=== PATIENT | male | born 1990 | race Caucasian/White ===

== ENCOUNTER 2020-04-15 17:06 | Emergency (ER) | payer OTHER ==
--- NOTE | 2020-04-15 17:13 | ED.PDOC ---
History of Present Illness - General Time Seen by Provider: 04/15/20 17:12 Source: patient - History of Present Illness Initial Comments: 29 yo male who presents with cc of fevers and body aches. Patient reports he initially became ill about 18 days ago with primary symptoms of malaise and dry cough. He tested positive for COVID-19 at that time. Reports he was gradually improving and feeling better until about 3 days ago. Since then he reports [facility] complaint of constant diffuse body aches which he rates as 6/10 severity currently, worse with activity/exertion. Reports aching pains throughout his entire body and all of his joints. He has been taking [id number] medications with little relief. Reports also frequent fevers and chills and diaphoretic episodes throughout the day. Tmax 103 F reported at home. He additionally reports continued malaise, fatigue, moderate generalized headache, intermittent nonproductive cough. Reports slightly decreased appetite and decreased solid food intake but reports has been drinking plenty of fluids and urinating normally. Denies any abdominal pain, nausea/vomiting, diarrhea, sore throat, chest pain, dyspnea, leg swelling. Reports missing yesterday in the clinic and tested negative for COVID-19, flu, strep, mono. He was given a shot of steroids and another IM medication but is uncertain if it is. Reports no improvement with this treatment. Allergies/Adverse Reactions: Allergies Penicillins Allergy (Verified 04/15/20 17:33) Review of Systems - Review of Systems Review of Systems: 04/15/20 17:34 as per HPI All other Systems: Reviewed and Negative Family Medical History - Family History Mother Family History: Unknown Physical Exam - Physical Exam General Appearance: Alert, Comfortable, No apparent distress Eye Exam: bilateral normal Ears, Nose, Throat: hearing grossly normal, normal ENT inspection, normal pharynx Neck: full range of motion, supple, normal inspection, tender lateral - mild muscular lateral ttp, no midline ttp, kernig and brudzinski signs negative Respiratory: lungs clear, normal breath sounds, no respiratory distress, no accessory muscle use Cardiovascular/Chest: normal peripheral pulses, no edema, no gallop, no JVD, no murmur, tachycardia Peripheral Pulses: radial,right: 2+, radial,left: 2+ Gastrointestinal/Abdominal: non tender, soft, no organomegaly Back Exam: normal inspection, no CVA tenderness, no vertebral tenderness Extremity: normal range of motion, non-tender, normal inspection, no pedal edema, no calf tenderness, normal capillary refill 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 Consider also UTI, PNA, rhabdomyolysis, TRACEY, electrolyte derangement, ?PE/DVT, other -pt with borderline tachycardia on arrival, HR 95-105, otherwise vitals stable, pt NAD -obtain RVP2 panel, bloodwork, d-dimer, CXR -place PIV, 1 L NS bolus, reassess 04/15/20 18:38 -Pt remains stable, tachycardia now resolved following IV fluids. Pt reports he is actually feeling much better with rest & IV fluids. -Labs are c/w viral infection - suspect COVID-19. Leukopenia, slightly elevated CPK (400s), slightly elevated d-dimer. Strep testing negative. Lactate 1.6 - doubt bacterial infection/sepsis. As no hypoxia, dyspnea, CP, hx of blood clots, highly doubtful of DVT/PE. Tachycardia again is resolved. Will defer any further imaging at this time. -Will give Toradol 30 mg IV and plan for dc to home. Advised further quarantine for minimum 10 days given strong suspicion for COVID-19. 04/16/20 20:12 -RVP2 showed COVID-19+, negative for all other tested pathogens. Will call and notify the patient of the official result. Plan remains the same as above. Larry Anderson MD Billing #[id number] 04/15/20 17:28 IV Care:Saline Lock per Protoc QSHIFT Telemetry .ONCE Sodium Chloride 0.9% (Flush) [Saline Flush Syringe] 10 ml IV PRN PRN 04/15/20 17:29 URINALYSIS Stat 04/15/20 18:05 RESPIRATORY PANEL 2 Stat STREP A SCREEN CULTURE Stat Laboratory Results - last 24 hr 04/15/20 04/15/20 04/15/20 17:49 17:49 17:49 WBC 3.9 L RBC 5.01 Hgb 16.2 Hct 45.5 MCV 90.8 MCH 32.3 H MCHC 35.5 RDW 12.2 Plt Count 145 MPV 9.0 Absolute Neuts (auto) 2.90 Absolute Lymphs (auto) 0.70 L Absolute Monos (auto) 0.30 Absolute Eos (auto) 0.00 Absolute Basos (auto) 0.00 Neutrophils % 74.3 Lymphocytes % 17.1 L Monocytes % 7.9 Eosinophils % 0.1 L Basophils % 0.6 D-Dimer, Quantitative Sodium 135 Potassium 3.7 Chloride 100 L Carbon Dioxide 24 Anion Gap 14.7 BUN 11 Creatinine 1.17 BUN/Creatinine Ratio 9.4 L Random Glucose 124 H Serum Osmolality 270.9 L Lactic Acid Calcium 8.2 L Total Bilirubin 1.1 H AST 44 H ALT 45 Alkaline Phosphatase 55 Creatine Kinase 411 H* Serum Total Protein 6.7 Albumin 3.7 Globulin 3.0 Albumin/Globulin Ratio 1.2 Group A Strep Rapid 04/15/20 04/15/20 04/15/20 17:49 17:49 18:05 WBC RBC Hgb Hct MCV MCH MCHC RDW Plt Count MPV Absolute Neuts (auto) Absolute Lymphs (auto) Absolute Monos (auto) Absolute Eos (auto) Absolute Basos (auto) Neutrophils % Lymphocytes % Monocytes % Eosinophils % Basophils % D-Dimer, Quantitative 559.0 H Sodium Potassium Chloride Carbon Dioxide Anion Gap BUN Creatinine BUN/Creatinine Ratio Random Glucose Serum Osmolality Lactic Acid 1.6 Calcium Total Bilirubin AST ALT Alkaline Phosphatase Creatine Kinase Serum Total Protein Albumin Globulin Albumin/Globulin Ratio Group A Strep Rapid Negative - EKG/XRAY/CT XRAY: chest - no acute processes per my read Departure - Departure Clinical Impression: COVID-19 Time of Disposition: 18:33 Disposition: Discharge to Home or Self Care Condition: Good Departure Forms: ED Discharge - Work Release Instructions: Coronavirus Disease 2019 (COVID-19) Diet: resume usual diet Activity: increase activity as tolerated Referrals: Damion Howell MD [Primary Care Provider] - 1-2 Weeks Additional Instructions: Remain well-hydrated and gradually advance your diet activity level as tolerated. Continue to take [id number] medications as needed for pain and fever such as Tylenol 650 mg every 6 hours as needed and ibuprofen 600 mg every 6 hours as needed. Return to the ED if you develop concerning symptoms such as worsening shortness of breath, chest pain, abdominal pain, intractable nausea and vomiting, large volume or frequent (more than 10 episodes per day) diarrhea, etc. Follow-up with your primary care doctor is recommended in the next 1 to 2 weeks for repeat evaluation or sooner as needed. I advise that you quarantine for at least another 10 days given concern for COVID-19 infection.
[2020-04-15] MEDS ORDERED: SODIUM CHLORIDE 0.9% (FLUSH) 10 ML SYG IV PRN (17:28)
[2020-04-15] MEDS ORDERED: SODIUM CHLORIDE 0.9% 1000ML 1,000 ML IVS ONE (17:29)
[2020-04-15 17:32] VITALS: TEMP 98.8
--- NOTE | 2020-04-15 18:03 | RAD ---
EXAM DESCRIPTION: Chest,1 View CLINICAL HISTORY:29 years Male, cough, body aches, COVID-19+ Comparison: None FINDINGS: No focal lung consolidation. No pleural effusion. No pneumothorax. Cardiac and mediastinal silhouette is unremarkable. No acute osseous abnormality. Soft tissues are unremarkable. IMPRESSION: No acute radiographic findings. No focal lung consolidation. Electronically signed by: Trung Bassett MD 04/15/2020 6:02 PM [employer]
[2020-04-15] MEDS ORDERED: KETOROLAC TROMETHAMINE INJ 30 MG/ML VIAL IV ONE (18:35)
[2020-04-15 18:53] VITALS: BP 124/79; O2SAT 97
== END 2020-04-15 19:15 | disposition home or self-care (01) ==
LOC: ER 17:06
DX: U07.1 COVID-19 (principal)

== ENCOUNTER 2020-04-16 07:54 | Emergency (ER) | payer OTHER ==
[2020-04-16] MEDS ORDERED: DEXAMETHASONE INJ 10 MG/ML VIAL IV ONE (08:09)
--- NOTE | 2020-04-16 08:13 | ED.PDOC ---
History of Present Illness - General Time Seen by Provider: 04/16/20 08:03 Source: patient, RN notes reviewed, Vital Signs reviewed, old records Exam Limitations: no limitations - History of Present Illness Comments: 29 yo otherwise healthy male comes in with COVID. Was diagnosed orginally back in March, had mild symptoms, including fatigue. States he felt better after 2 days. Then 5 days ago got fever, body aches, chills, sore throat. Was seen here in ER yesterday was found to have normal cxr. Fever at home was 104 F. States he just feels horrible. Temperature in triage 99. Has been taking tylenol and motrin. Threw up motrin/tylenol earlier this morning. denies abdominal pain diarrhea. Allergies/Adverse Reactions: Allergies Penicillins Allergy (Verified 04/15/20 17:33) Home Medications: Ambulatory Orders Dexamethasone [Decadron] 4 mg PO DAILY #4 tab 04/16/20 Magnesium Oxide 400 mg PO DAILY #14 cap 04/16/20 Ondansetron HCl [Zofran] 4 mg PO TID PRN #15 tab 04/16/20 Potassium Chloride [Potassium Chloride ER] 20 meq PO DAILY #10 tab 04/16/20 Review of Systems - Review of Systems Constitutional: States: chills, fever, malaise EENTM: States: throat pain. Denies: ear discharge, nose congestion, mouth pain Respiratory: States: cough. Denies: short of breath Cardiology: Denies: chest pain, palpitations, syncope Gastrointestinal/Abdominal: States: nausea, vomiting. Denies: abdominal pain, diarrhea Genitourinary: Denies: discharge, dysuria, frequency, hematuria Musculoskeletal: Denies: back pain, muscle pain, neck pain Skin: Denies: change in color, dryness, lesions, rash Neurological: Denies: depressed, headache, numbness, paresthesia, weakness Endocrine: Denies: unexplained weight gain, unexplained weight loss Hematologic/Lymphatic: Denies: easy bleeding, easy bruising Past Medical History (General) - Patient Medical History Hx Seizures: No Hx Stroke: No Hx Dementia: No Hx Asthma: No Hx of COPD: No Hx Cardiac Disorders: No Hx Congestive Heart Failure: No Hx Pacemaker: No Hx Hypertension: No Hx Thyroid Disease: No Hx Diabetes: No Hx Gastroesophageal Reflux: No Hx Renal Disease: No Hx Cancer: No Hx of HIV: No Hx Hepatitis B: No Hx Hepatitis C: No Hx MRSA: No Hx Other PMH: No - Vaccination History Hx Influenza Vaccination: No Hx Pneumococcal Vaccination: No - Social History Hx Tobacco Use: No Hx Alcohol Use: Yes - occasional Hx Substance Use Treatment: No Family Medical History - Family History Mother Family History: Unknown Physical Exam - Physical Exam General Appearance: Alert, Comfortable, No apparent distress, Well Developed, We ll Groomed, Well Hydrated, Well Nourished Eye Exam: bilateral normal ENT Exam: normal ENT inspection, hearing grossly normal, TMs normal Neck: non-tender, full range of motion, supple, normal inspection, trachea midline Respiratory: chest non-tender, lungs clear, normal breath sounds, no respiratory distress, no accessory muscle use Cardiovascular/Chest: normal peripheral pulses, regular rate, rhythm, no edema, no gallop Gastrointestinal/Abdominal: normal bowel sounds, non tender, soft, no organomegaly, no pulsatile mass Extremity: normal range of motion, non-tender, normal inspection, no pedal edema, no calf tenderness, normal capillary refill 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 WIll get CT. Will give dose of dexamethasone. Discussed with Dr. Ace, will get CT scan. patient sent for CTA; however, IV infiltrated. CT without shows no signs of pneumonia. complaining of leg pain due to elevated d-dimer will check Venous US. Venous US negative for DVT. hakan had localized reaction to azithromycin, so medicine stopped, given some Benadryl. Will given another fluid bolus and magnesium. Plan ondischarging home. The data reviewed when caring for this patient included: nurse notes, prior records, etc. The history and assessments from nurses notes were reviewed and considered, and the patient's home medic ation list was also reviewed and considered. My assessment and the results of testing completed here in the ED were discussed with the patient/family. All questions were answered, and they express understanding of my assessment and the plan. They have been instructed to return if their symptoms worsen, and have been asked to follow up with their primary care physician to recheck today's presenting complaint. Strict return precautions given. I have reviewed medication, benefits, alternatives and side effects. Patient decided to proceed with medication. Joy Navarro DO #[id number] 04/16/20 09:45 04/16/20 10:51 - EKG/XRAY/CT EKG: Sinus, Tachy Comments: normal intervals, no ischemia noted. XRAY: chest - no acute abnormalities (from 04/15/20) Departure - Departure Clinical Impression: COVID-19, Hypokalemia, Hypomagnesemia, Dehydration Time of Disposition: 10:50 Disposition: Discharge to Home or Self Care Instructions: Muscle and Bone Pain (DC), Viral Syndrome (DC) Diet: resume usual diet Activity: increase activity as tolerated Referrals: Damion Howell MD [Primary Care Provider] - 1-5 Days Prescriptions: Dexamethasone [Decadron] 4 mg PO DAILY #4 tab Magnesium Oxide 400 mg PO DAILY #14 cap Potassium Chloride [Potassium Chloride ER] 20 meq PO DAILY #10 tab Ondansetron HCl [Zofran] 4 mg PO TID PRN #15 tab PRN Reason: Vomiting Home Medications: Ambulatory Orders Dexamethasone [Decadron] 4 mg PO DAILY #4 tab 04/16/20 Magnesium Oxide 400 mg PO DAILY #14 cap 04/16/20 Ondansetron HCl [Zofran] 4 mg PO TID PRN #15 tab 04/16/20 Potassium Chloride [Potassium Chloride ER] 20 meq PO DAILY #10 tab 04/16/20
[2020-04-16] MEDS ORDERED: ACETAMINOPHEN IV 1000MG 1,000 MG in PREMIX BOTTLE 1 BOTTLE IVPB ONE (08:14)
[2020-04-16] MEDS ORDERED: SODIUM CHLORIDE 0.9% 1000ML 1,000 ML IVS ONE ×2 (08:14→10:11)
[2020-04-16] MEDS ORDERED: ONDANSETRON INJ 4 MG/2 ML VIAL IV ONE (08:15)
--- NOTE | 2020-04-16 09:38 | CT ---
EXAM DESCRIPTION: Chest w/o Contrast CLINICAL HISTORY: covid COMPARISON: None. TECHNIQUE: Noncontrast transaxial CT images of the chest are obtained. This exam was performed according to our departmental dose-optimization program, which includes automated exposure control, adjustment of the mA and/or kV according to patient size and/or use of iterative reconstruction technique . FINDINGS: Heart is unremarkable. 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 No pathologically enlarged mediastinal, hilar, or axillary lymphadenopathy seen. Trace pericardial effusion. No pleural effusion. Visualized upper abdomen shows mild enlargement of the spleen measuring at least 15.4 cm AP. Lungs are mildly hypoaerated. No acute appearing infiltrate or consolidation. No worrisome noncalcified pulmonary nodules. Osseous structures show no aggressive bony lesions. IMPRESSION: No acute findings on CT of the chest. No CT findings to indicate pneumonia. Note: CT may be negative in the early stages of COVID-19 pneumonia. [PneNeg] Electronically signed by: Brian Germain MD 04/16/2020 9:36 AM [facility]
[2020-04-16] MEDS ORDERED: AZITHROMYCIN IV 500 MG in SODIUM CHLORIDE 0.9% 250ML 250 ML IVPB ONE (09:44)
[2020-04-16] MEDS ORDERED: MAGNESIUM SULFATE INJ 1 GM in SODIUM CHLORIDE 0.9% 100ML 100 ML IVPB ONE (10:12)
[2020-04-16] MEDS ORDERED: diphenhydrAMINE HCL 50 MG/ML VIAL IV ONE (10:39)
--- NOTE | 2020-04-16 11:07 | US ---
EXAM DESCRIPTION: Venous,Lower Extremity LT (accession [id number]), Venous,Lower Extremity RT (accession [id number]): Ultrasound. CLINICAL HISTORY: leg pain. Bilateral COMPARISON: None Available. TECHNIQUE: Two -dimensional and doppler sonographic evaluation of the deep venous system of the bilateral lower extremities. FINDINGS: Doppler evaluation shows normal color flow and normal phasicity and augmentation of the bilateral common femoral veins, junctions with the bilateral proximal saphenous veins, femoral veins, popliteal veins, greater saphenous veins,, peroneal and posterior tibial veins. These veins showed normal occlusion with transducer pressure. Two-dimensional survey showed no echogenic clot within these veins. IMPRESSION: Duplex ultrasound evaluation of the bilateral lower extremity deep venous systems showing no evidence of thrombosis. Electronically signed by: Danial Soto MD 04/16/2020 11:06 AM [employer]
--- NOTE | 2020-04-16 11:08 | US ---
EXAM DESCRIPTION: Venous,Lower Extremity LT (accession [id number]), Venous,Lower Extremity RT (accession [id number]): Ultrasound. CLINICAL HISTORY: leg pain. Bilateral COMPARISON: None Available. TECHNIQUE: Two -dimensional and doppler sonographic evaluation of the deep venous system of the bilateral lower extremities. FINDINGS: Doppler evaluation shows normal color flow and normal phasicity and augmentation of the bilateral common femoral veins, junctions with the bilateral proximal saphenous veins, femoral veins, popliteal veins, greater saphenous veins,, peroneal and posterior tibial veins. These veins showed normal occlusion with transducer pressure. Two-dimensional survey showed no echogenic clot within these veins. IMPRESSION: Duplex ultrasound evaluation of the bilateral lower extremity deep venous systems showing no evidence of thrombosis. Electronically signed by: Danial Soto MD 04/16/2020 11:06 AM [employer]
[2020-04-16 12:37] VITALS: TEMP 97.6; O2SAT 99
[2020-04-16 12:38] VITALS: BP 102/67
== END 2020-04-16 12:26 | disposition home or self-care (01) ==
LOC: ER 07:54
DX: U07.1 COVID-19 (principal); E86.0 Dehydration; E87.6 Hypokalemia; E83.42 Hypomagnesemia; R00.0 Tachycardia, unspecified; Z88.0 Allergy status to penicillin